=== PATIENT | male | born 1990 | race Native Hawaiian/Other Pacific Islander ===

== ENCOUNTER 2019-09-23 09:12 | Emergency (ER) | payer OTHER ==
--- NOTE | 2019-09-23 09:45 | ED Physician Documentation ---
PD HPI LOWER EXT INJURY - Stated complaint Stated Complaint: LT ANKLE PX - Chief complaint Chief Complaint: Ext Problem - History obtained from History obtained from: Patient - History of Present Illness PD HPI LOW EXT INJURY LOCATION: Left, Ankle (Achilles area) Type of injury: Other (was standing and walking a lot recently, with pack on back. Onset and worsening of pain at left heel/Achilles over past 2-3 days, and worsening. Pain with just standing this morning.). No: Fall, Twist Where injury occurred: Work Timing - onset: How many days ago (2-3) Timing - duration: Days Timing - details: Gradual onset, Still present Worsened by: Moving, Other (standing and walking. Dorsiflexion stretching of ankle hurts at heel.) Associated symptoms: No: Weakness, Numbness, Swelling, Discolored Similar symptoms before: Has not had sx before Recently seen: Not recently seen (he is not on any recent/current abx.) Review of Systems Constitutional: denies: Fever, Chills, Myalgias Skin: denies: Rash, Lesions, Abrasion (s) Neurologic: denies: Focal weakness, Numbness PD PAST MEDICAL HISTORY - Past Medical History Past Medical History: No Musculoskeletal: None - Present Medications Home Medications: Ambulatory Orders Medication Instructions Recorded Confirmed Ibuprofen [Motrin] 600 mg PO TID PRN #25 tab 09/23/19 - Allergies Allergies/Adverse Reactions: Allergies Allergy/AdvReac Type Severity Reaction Status Date / Time No Known Drug Allergies Allergy Verified 09/23/19 09:17 PD ED PE NORMAL - Vitals Vital signs reviewed: Yes - General General: Alert and oriented X 3, No acute distress, Well developed/nourished - Derm Derm: Normal color, Warm and dry, No rash - Extremities Extremities: Other (tender at posterior heel at Achilles insertion area. No swelling. Not tender at mid nor upper Achilles, nor in calf muscles. Plantar aspect of foot not tender. ) - Neuro Neuro: Alert and oriented X 3, No motor deficit, No sensory deficit, Normal speech Results - Vitals Vitals: Vital Signs - 24 hr 09/23/19 09/23/19 09:13 11:15 Temperature 36.9 C 36.9 C Heart Rate 89 68 Respiratory 16 20 Rate Blood Pressure 151/88 H 120/68 O2 Saturation 97 96 Oxygen O2 Source Room air - Rads (name of study) left ankle Radiology: Prelim report reviewed (small arthritic changes at posterior calcaneus. Thickening of soft tissue in Achilles area.), See rad report PD MEDICAL DECISION MAKING - ED course Complexity details: considered differential (seems Achilles tendonitis. The Achilles is firm and intact, no mechanism for tear. ), d/w patient Departure - Departure Disposition: 01 Home, Self Care Clinical Impression: Achilles tendonitis Qualifiers: Laterality: left Qualified Code(s): M76.62 - Achilles tendinitis, left leg Condition: Stable Record reviewed to determine appropriate education?: Yes Instructions: Achilles Tendonitis Follow-Up: [facility] [Provider Group] Prescriptions: Ibuprofen [Motrin] 600 mg PO TID PRN #25 tab PRN Reason: Pain Comments: Use the ankle brace when up and around to reduce motion in the ankle. You do not have to have it on when rested. Use the crutches for partial to no weightbearing over the next 4 to 5 days to reduce irritation at the Achilles tendon insertion. Obtain a small heel cup support for both heels to insert into your shoes. This will lift the heel very slightly and reduce the tension at the Achilles insertion. Anti-inflammatories ibuprofen 3 times a day for the next week with food. To that add Tylenol if needed for pains. Less standing and walking over the next 4 to 5 days. Follow-up with your primary care later this coming week for reevaluation of it. Forms: Activity restrictions Discharge Date/Time: 09/23/19 11:14
[2019-09-23] MEDS ORDERED: ACETAMINOPHEN 325 MG TABLET PO STA (10:07)
[2019-09-23] MEDS ORDERED: IBUPROFEN 600 MG TABLET PO STA (10:07)
--- NOTE | 2019-09-23 10:41 | XRAY Report ---
PROCEDURE: Ankle 2 View LT INDICATIONS: achilles area pain with walking TECHNIQUE: 2 views of the ankle were acquired. COMPARISON: None FINDINGS: Bones: No fractures or dislocations. Mild degenerative arthritis. Ankle mortise is normally aligned . No suspicious bony lesions. Soft tissues: No tibiotalar joint effusion. Thickening in the region of the Achilles may indicate pa rtial tear of uncertain duration. IMPRESSION: 1. Mild degenerative arthritis. 2. No evidence acute bony abnormality of the left ankle. Oblique view not obtained. Base of fifth met atarsal not well evaluated. 3. Achilles region thickening suggests possible partial tear of uncertain duration. Comment: Ankle MRI may potentially be helpful. Reviewed by: Pb oK MD on 09/23/2019 9:39 AM R[facility] Approved by: Pb Ko MD on 09/23/2019 9:39 AM R[facility]MON[place] Station ID: [id number]
[2019-09-23 11:15] VITALS: BP 120/68
== END 2019-09-23 11:14 | disposition home or self-care (01) ==
LOC: ED 09:12
DX: M76.62 Achilles tendinitis, left leg (principal); M19.072 Primary osteoarthritis, left ankle and foot
CPT/HCPCS: 73600; 99283; A9270